=== PATIENT | male | born 1990 | race Hispanic/Latino ===

== ENCOUNTER 2020-11-03 08:35 | Emergency (ER) | payer SELFPAY ==
[2020-11-03 09:25] LABS: Absolute Lymphocytes (CBC) 1.8 K/uL (0.7-4.9); Basophils % 0.6 % (0-1.3); Hematocrit 47.4 % (39.6-49.0); Lymphocytes % 13.3 % (15.3-44.8); RBC Red Blood Cell Count 5.53 M/uL (4.33-5.43)
[2020-11-03] MEDS ORDERED: ONDANSETRON 4 MG/2 ML VIAL ONE (09:28)
[2020-11-03 09:44] LABS: ALT/SGPT 39 U/L (12-78); AST/SGOT 17 U/L (15-37); Albumin 4.2 g/dL (3.4-5.0); Alkaline Phosphatase 110 U/L (45-117); BUN Blood Urea Nitrogen 5 mg/dL (7-18); Bicarbonate 25 mmol/L (21-32); Bilirubin Direct 0.1 mg/dL (0-0.2); Bilirubin Total 0.5 mg/dL (0.2-1.0); Glucose Level 105 mg/dL (74-106); Lipase 54 U/L (73-393); Potassium 3.5 mmol/L (3.5-5.1); Protein, Total 7.9 g/dL (6.4-8.2); Sodium Level 140 mmol/L (136-145)
--- NOTE | 2020-11-03 10:20 | RAD REPORT ---
EXAM DESCRIPTION: CTAbdomen Pelvis W Contrast - 11/03/2020 10:09 am CLINICAL HISTORY: Abdominal pain. ABD PAIN COMPARISON: No comparisons TECHNIQUE: Biphasic CT imaging of the abdomen and pelvis was performed with 100 ml non-ionic IV cont rast. All CT scans are performed using dose optimization technique as appropriate and may include automated exposure control or mA/KV adjustment according to patient size. FINDINGS: The lung bases are clear. The liver demonstrates mild fatty infiltration. Several small low-density hepatic cysts are present. The spleen, pancreas, adrenal glands and kidneys are within normal limits. No bowel obstruction, free air, free fluid or abscess. Mild diverticulosis of the sigmoid colon is pr esent. The appendix is normal. No evidence of significant lymphadenopathy. No suspicious bony findings. IMPRESSION: No acute intra-abdominal or pelvic finding. Mild fatty liver.
--- NOTE | 2020-11-03 10:26 | EDPHYS ---
Physician Documentation [facility] Name: Chema Leija Age: 30 yrs Sex: Male : 1990 Arrival Date: 11/03/2020 Time: 08:38 Bed 9 Private MD: ED Physician Jessica Horn HPI: 11/03 09:24 This 30 yrs old Male presents to ER via Ambulatory with complaints of Nausea. kb 09:24 The patient presents to the emergency department with nausea. Onset: The kb symptoms/episode began/occurred 1.5 month(s) ago. Possible causes: unknown. The symptoms are aggravated by nothing. The symptoms are alleviated by nothing. Associated signs and symptoms: Pertinent positives: nausea, vomiting. Severity of symptoms: At their worst the symptoms were mild in the emergency department the symptoms are unchanged. The patient has not experienced similar symptoms in the past. The patient has not recently seen a physician. Pt reports nausea in the mornings, sometimes with vomiting, and abdomen tensing up at times for 1.5 months. States this has happened in the past when he was stressed. Denies fever. States symptoms have been worse this week. Historical: - Allergies: 08:41 No Known Allergies; aa5 - PMHx: 08:41 Acid Reflux; aa5 - PSHx: 08:41 None; aa5 - Immunization history:: Client reports having NOT received the Covid vaccine. - Social history:: Smoking status: Patient reports the use of cigarette tobacco products, smokes one pack cigarettes per day. ROS: 09:18 Constitutional: Negative for fever, chills, and weight loss. kb 09:18 Abdomen/GI: Positive for nausea, abdominal cramps. 09:18 All other systems are negative. Exam: 09:18 Constitutional: This is a well developed, well nourished patient who is awake, alert, kb and in no acute distress. Head/Face: Normocephalic, atraumatic. ENT: Moist Mucous membranes Cardiovascular: Regular rate and rhythm with a normal S1 and S2. No gallops, murmurs, or rubs. No pulse deficits. Respiratory: Respirations even and unlabored. No increased work of breathing, no retractions or nasal flaring. Skin: Warm, dry with normal turgor. Normal color. MS/ Extremity: Pulses equal, no cyanosis. Neurovascular intact. Full, normal range of motion. Neuro: Awake and alert, GCS 15, oriented to person, place, time, and situation. Moves all extremities. Normal gait. Psych: Awake, alert, with orientation to person, place and time. Behavior, mood, and affect are within normal limits. 09:18 Abdomen/GI: Inspection: abdomen appears normal, Bowel sounds: normal, in all quadrants, Palpation: soft, in all quadrants, mild abdominal tenderness, in all quadrants. Vital Signs: 08:43 BP 145 / 90; Pulse 95; Resp 16 S; Temp 98.9(O); Pulse Ox 98% on R/A; Height 5 ft. 6 in. aa5 (167.64 cm) (R); Pain 7/10; MDM: 08:43 Patient medically screened. kb 09:24 Data reviewed: vital signs, nurses notes. Data interpreted: Pulse oximetry: on room air kb is 98 %. Interpretation: normal. 10:24 Counseling: I had a detailed discussion with the patient and/or guardian regarding: the kb historical points, exam findings, and any diagnostic results supporting the discharge/admit diagnosis, lab results, radiology results, the need for outpatient follow up, a family practitioner, to return to the emergency department if symptoms worsen or persist or if there are any questions or concerns that arise at home. 11/03 08:43 Order name: Basic Metabolic Panel; Complete Time: 09:46 kb 11/03 08:43 Order name: CBC with Diff; Complete Time: 09:27 kb 11/03 08:43 Order name: Hepatic Function; Complete Time: 09:46 kb 11/03 08:43 Order name: Lipase; Complete Time: 09:46 kb 11/03 09:27 Order name: CT Abd/Pelvis - IV Contrast Only; Complete Time: 10:24 kb 11/03 08:43 Order name: IV Saline Lock; Complete Time: 09:15 kb 11/03 08:43 Order name: Labs collected and sent; Complete Time: 09:15 kb Administered Medications: 09:10 Drug: Zofran (Ondansetron) 4 mg Route: IVP; Site: left antecubital; bp 11:07 Follow up: Response: No adverse reaction bp Disposition Summary: 11/03/20 10:24 Discharge Ordered Location: Home kb Condition: Stable kb Diagnosis - Nausea with vomiting, unspecified kb - Abdominal pain, Generalized kb Followup: kb - With: Emergency Department - When: As needed - Reason: Worsening of condition Followup: kb - With: Private Physician - When: 2 - 3 days - Reason: Recheck today's complaints, Continuance of care, Re-evaluation by your physician Discharge Instructions: - Discharge Summary Sheet kb - Nausea and Vomiting, Adult, [id number] kb Forms: - Medication Reconciliation Form kb - Thank You Letter kb - Antibiotic Education kb - Prescription Opioid Use kb - Work release form mt Prescriptions: - Zofran 4 mg Oral Tablet - take 1 tablet by ORAL route every 6 hours As needed; 20 tablet; Refills: 0, kb Product Selection Permitted - dicyclomine 20 mg Oral Tablet - take 1 tablet by ORAL route every 6 hours As needed; 20 tablet; Refills: 0, kb Product Selection Permitted Signatures: Dispatcher [employer] EDKS Erum Short, GERALD-C Candace Bowman RN RN aa5 Rodri Rao RN RN bp Corrections: (The following items were deleted from the chart) 08:43 08:41 PMHx: None; aaFlip tim
--- NOTE | 2020-11-03 10:26 | ER ---
Nurse's Notes [facility] Name: Chema Leija Age: 30 yrs Sex: Male : 1990 Arrival Date: 11/03/2020 Time: 08:38 Bed 9 Private MD: Diagnosis: Nausea with vomiting, unspecified;Abdominal pain, Generalized Presentation: 11/03 08:40 Chief complaint: Patient states: "I've been having stomach issues about a month and a aa5 half ago and it's usually when I am stressed and over the last week it's been worse with nausea". Coronavirus screen: nausea. Ebola Screen: Patient negative for fever greater than or equal to 101.5 degrees Fahrenheit, and additional compatible Ebola Virus Disease symptoms. Initial Sepsis Screen: Does the patient meet any 2 criteria? No. Patient's initial sepsis screen is negative. Does the patient have a suspected source of infection? No. Patient's initial sepsis screen is negative. Risk Assessment: Do you want to hurt yourself or someone else? Patient reports no desire to harm self or others. Onset of symptoms was November 2020. 08:40 Method Of Arrival: Ambulatory aa5 08:40 Acuity: OMER 3 aa5 Triage Assessment: 09:00 General: Appears in no apparent distress. uncomfortable, Behavior is cooperative, bp appropriate for age, anxious. Pain: Denies pain. EENT: No deficits noted. Neuro: No deficits noted. Cardiovascular: No deficits noted. Respiratory: No deficits noted. GI: Reports nausea. : No signs and/or symptoms were reported regarding the genitourinary system. Derm: No deficits noted. Musculoskeletal: No deficits noted. Historical: - Allergies: 08:41 No Known Allergies; aa5 - PMHx: 08:41 Acid Reflux; aa5 - PSHx: 08:41 None; aa5 - Immunization history:: Client reports having NOT received the Covid vaccine. - Social history:: Smoking status: Patient reports the use of cigarette tobacco products, smokes one pack cigarettes per day. Screenin:17 Abuse screen: Denies threats or abuse. Denies injuries from another. Nutritional bp screening: No deficits noted. Tuberculosis screening: No symptoms or risk factors identified. Fall Risk None identified. Assessment: 09:00 General: SEE TRIAGE NOTE. bp 10:00 GI: Abdomen is non-distended. bp 11:05 Reassessment: PT D/C HOME AMBULATORY, DX WITH NAUSEA/VOMITING. bp Vital Signs: 08:43 BP 145 / 90; Pulse 95; Resp 16 S; Temp 98.9(O); Pulse Ox 98% on R/A; Height 5 ft. 6 in. aa5 (167.64 cm) (R); Pain 7/10; ED Course: 08:38 Patient arrived in ED. as 08:40 Arm band placed on. aa5 08:41 Triage completed. aa5 08:43 Erum Short FNP-C [facility]. kb 08:43 Jessica Horn MD is Attending Physician. kb 09:02 Rodri Rao, RN is Primary Nurse. bp 09:10 Inserted saline lock: 20 gauge in left antecubital area, using aseptic technique. Blood bp collected. 09:17 Patient has correct armband on for positive identification. Bed in low position. Call bp light in reach. Side rails up X2. 10:08 CT Abd/Pelvis - IV Contrast Only In Process Unspecified. EDMS 11:07 No provider procedures requiring assistance completed. IV discontinued, intact, bp bleeding controlled, No redness/swelling at site. Pressure dressing applied. Administered Medications: 09:10 Drug: Zofran (Ondansetron) 4 mg Route: IVP; Site: left antecubital; bp 11:07 Follow up: Response: No adverse reaction bp Outcome: 10:24 Discharge ordered by MD. kb 11:06 Discharged to home ambulatory. bp 11:06 Condition: stable 11:06 Discharge instructions given to patient, Instructed on discharge instructions, follow up and referral plans. medication usage, Demonstrated understanding of instructions, follow-up care, medications, Prescriptions given X 2. 11:07 Patient left the ED. bp Signatures: Dispatcher [employer] EDMS Erum Short FNP-C FNP-Ckb Martinez, Amelia as Calderon, Audri, RN RN aa5 Rodri Rao, RN RN bp Corrections: (The following items were deleted from the chart) 08:43 08:41 PMHx: None; aa5 aa5
[2020-11-03 11:15] VITALS: BP 145/90; TEMP 98.9; O2SAT 98
== END 2020-11-03 11:07 | disposition home or self-care (01) ==
LOC: ER 08:35
DX: R10.84 Generalized abdominal pain (principal); F17.210 Nicotine dependence, cigarettes, uncomplicated
CPT/HCPCS: 36415; 74177; 80048; 80076; 83690; 85025; 96374; 99284; J2405; Q9967